=== PATIENT | female | born 1960 | race Caucasian/White ===

== ENCOUNTER → 2018-10-21 | Outpatient (CLI) | payer BC ==
--- NOTE | 2018-10-21 17:29 | RAD ---
EXAM: 1. AP pelvis, AP and frog-leg lateral views left hip 2. AP and lateral views of the left femur DATE: 10/21/2018 3:12 PM INDICATION: LT LEG PAIN S/P SLIPPING A FEW DAYS AGO COMPARISON: No Prior FINDINGS: No evidence of acute fracture or dislocation of the pelvis or left femur. Small left femoral head/neck junction osteophytes are seen. Hip joint spaces are preserved. Small right os acetabuli is incidentally noted. IMPRESSION: No evidence of acute fracture or dislocation. Mild left hip joint degenerative change. Electronically signed by: Patrick Olivarez MD (10/21/2018 5:25 PM) [id number]
== END | disposition home or self-care (01) ==
LOC: RAD 15:00
PROVIDERS: ATTEND Registered Nurse
DX: M16.12 Unilateral primary osteoarthritis, left hip (principal); M25.752 Osteophyte, left hip
CPT/HCPCS: 73502; 73552